=== PATIENT | male | born 1995 | race African-American/Black ===

== ENCOUNTER 2017-01-28 22:40 | Emergency (ER) | payer SELFPAY ==
[~2017-01-28] VITALS: Ht 182.9 cm; Wt 74.8 kg
[2017-01-28 23:12] VITALS: BP 142/80
--- NOTE | 2017-01-28 23:14 | PHYS DOC ---
Adult General Chief Complaint Chief Complaint: LACERATION/AVULSION [facility] HPI Patient is a 21 year old male presents to the emergency department with complaints of abrasion between the thumb and first finger on the right hand. Patient states she was playing with a pellet gun yesterday when the slide caught his skin and he sustained an abrasion. He has no loss of range of motion. He has no complaints other than wishing to make sure that the wound was healing properly. Review of Systems Review of Systems Constitutional: Denies fever or chills [] Eyes: Denies change in visual acuity, redness, or eye pain [] HENT: Denies nasal congestion or sore throat [] Respiratory: Denies cough or shortness of breath [] Cardiovascular: No additional information not addressed in HPI [] GI: Denies abdominal pain, nausea, vomiting, bloody stools or diarrhea [] : Denies dysuria or hematuria [] Musculoskeletal: Denies back pain or joint pain [] Integument: Abrasion Neurologic: Denies headache, focal weakness or sensory changes [] Endocrine: Denies polyuria or polydipsia [] Physical Exam Physical Exam Constitutional: Well developed, well nourished, no acute distress, non-toxic appearance. [] HENT: Normocephalic, atraumatic, bilateral external ears normal, oropharynx moist, no oral exudates, nose normal. [] Eyes: PERRLA, EOMI, conjunctiva normal, no discharge. [] Neck: Normal range of motion, no tenderness, supple, no stridor. [] Cardiovascular:Heart rate regular rhythm, no murmur [] Lungs & Thorax: Bilateral breath sounds clear to auscultation [] Abdomen: Bowel sounds normal, soft, no tenderness, no masses, no pulsatile masses. [] Skin: Warm, dry, no erythema, no rash. Webspace of the thumb and first finger right hand, half centimeter superficial abrasion. No surrounding erythema. Is nontender to palpate. [] Back: No tenderness, no CVA tenderness. [] Extremities: No tenderness, no cyanosis, no clubbing, ROM intact, no edema. [] Neurologic: Alert and oriented X 3, normal motor function, normal sensory function, no focal deficits noted. [] Psychologic: Affect normal, judgement normal, mood normal. [] EKG EKG [] Radiology/Procedures Radiology/Procedures [] Course & Med Decision Making Course & Med Decision Making Pertinent Labs and Imaging studies reviewed. (See chart for details) [] Dragon Disclaimer Dragon Disclaimer This electronic medical record was generated, in whole or in part, using a voice recognition dictation system. Departure Departure Impression: Primary Impression: Abrasion, hand without infection Disposition: HOME, SELF-CARE Condition: STABLE Referrals: [facility] Instructions: Abrasions, Tissue Adhesive Wound Care, [id number] EZRA VAZQUEZ APRN Jan 28, 2017 23:14
== END 2017-01-28 23:19 | disposition home or self-care (01) ==
LOC: ER 22:40
DX: S60.511A Abrasion of right hand, initial encounter (principal); W23.0XXA Caught, crushed, jammed, or pinched between moving objects, initial encounter; Y93.89 Activity, other specified; Y92.89 Other specified places as the place of occurrence of the external cause; Y99.8 Other external cause status
CPT/HCPCS: 99283